=== PATIENT | female | born 1980 | race Hispanic/Latino ===

== ENCOUNTER 2018-09-24 08:31 | Day surgery (SDC) | payer BC ==
[2018-09-24] MEDS ORDERED: ATROPINE 0.1% (CARDIAC) ONE (09:24)
[2018-09-24] MEDS ORDERED: ADRENALIN ONE (09:24)
[2018-09-24] MEDS ORDERED: NITROSTAT SL ONE (09:24)
[2018-09-24] MEDS ORDERED: NACL 0.9% 500 ML 500 ML IV SCH (10:00)
--- NOTE | 2018-09-24 10:33 | Short Stay Summary ---
Short Stay Documentation Date of service: 09/24/18 - History H&P: obtained from office - Allergies and Medications Current Medications: Allergies acetaminophen [From Percocet] Allergy (Unverified 09/24/18 08:32) Hives oxycodone [From Percocet] Allergy (Unverified 09/24/18 08:32) Hives Active Medications Sodium Chloride (Nacl 0.9% 500 Ml) 500 mls @ 50 mls/hr IV DIRECT MARY Last Admin: 09/24/18 10:10 Dose: 160 mls Documented by: - Physical exam General appearance: no acute distress Integumentary: no rash HEENT: Atraumatic Lungs: Clear to auscultation Breasts: deferred Heart: Regular rate Gastrointestinal: normal Female Genitourinary: deferred Rectal Exam: deferred Extremities: no ischemia Neurological: Normal gait - Brief post op/procedure progress note Date of procedure: 09/24/18 Pre-op diagnosis: Syncope Post-op diagnosis: same Procedure: TTT Anesthesia: none Findings: See report Estimated blood loss: none Pathology: none Condition: stable - Disposition Condition at discharge: Good Disposition: DC-01 TO HOME OR SELFCARE Short Stay Discharge Plan Activity: advance as tolerated Weight Bearing Status: Full Weight Bearing Diet: regular Follow up with: NOHELIA NATION DO [Primary Care Provider] - 7 Days
[2018-09-24 14:58] VITALS: BP 114/64
--- NOTE | 2018-09-24 19:36 | Procedure Note ---
TILT TABLE TEST ORDERING PHYSICIAN: Torrey James MD INDICATION: Syncope. FINDINGS: After obtaining written consent, the patient was brought to the lift slab operator and she was secured on the tilt table test. Her baseline supine blood pressure was 113/66 with a baseline supine heart rate of 73 beats per minute. Then, the patient was tilted to 85 degrees from horizontal. Immediately after tilting her blood pressure was 115/67 with a heart rate of 84 beats per minute, sinus rhythm. The patient was kept in the upright position for a total of 10 minutes. At the end of the 10 minutes, her blood pressure was 109/72 with a heart rate of 80 beats per minute, sinus rhythm. No complaints of dizziness or near syncope or syncope reported. The patient was subsequently given 0.4 mg of sublingual nitroglycerin. Seven minutes and 34 seconds after the nitroglycerin tablet, her blood pressure dropped to 89/59 with a heart rate of 108 beats per minute. The patient did start complaining of dizziness and pressure in her head. Repeated blood pressure was 96/64. The patient was then tilted back to horizontal. After tilting her back to horizontal her blood pressure gradually recovered to 106/67 and the heart rate of 74 beats per minute and the patient's symptoms resolved. IMPRESSION: This is a negative tilt table test with no evidence of a vasodepressor or cardioinhibitory response. The patient had a normal hypertensive response to nitroglycerin. Please note that the patient's baseline blood pressure was 109/72 prior to giving the nitroglycerin and went down to 89/59 after nitroglycerin with a heart rate of 108 beats per minute. RECOMMENDATION: Follow up with referring managed services sales consultant. JOB# [id number] IVY/KEVIN
== END 2018-09-24 11:45 | disposition home or self-care (01) ==
LOC: CATHLABREC 08:31 → EDSTATUS 12:00
PROVIDERS: ATTEND Internal Medicine Cardiovascular Disease
DX: R00.2 Palpitations (principal); R42 Dizziness and giddiness; F17.210 Nicotine dependence, cigarettes, uncomplicated; Z79.899 Other long term (current) drug therapy; Z83.3 Family history of diabetes mellitus; Z82.49 Family history of ischemic heart disease and other diseases of the circulatory system; Z88.8 Allergy status to other drugs, medicaments and biological substances
CPT/HCPCS: 93660; J7040; J0171; J0461